=== PATIENT | male | born 1950 | race Caucasian/White ===

== ENCOUNTER → 2020-09-07 | Outpatient (RCR) | payer MEDICARE, OTHER | LOC: PT 08-12 09:45 | PROVIDERS: ATTEND Specialist | DX: S33.5XXA Sprain of ligaments of lumbar spine, initial encounter (principal); M54.42 Lumbago with sciatica, left side; M54.16 Radiculopathy, lumbar region; M62.81 Muscle weakness (generalized) | CPT/HCPCS: 97139 ==

== ENCOUNTER 2020-09-23 10:00 | Outpatient (RCR) | payer MEDICARE, OTHER | END 2020-10-08 | LOC: PT 10:00 | PROVIDERS: ATTEND Specialist | DX: S33.5XXA Sprain of ligaments of lumbar spine, initial encounter (principal); S73.192A Other sprain of left hip, initial encounter; M54.30 Sciatica, unspecified side ==